=== PATIENT | female | born 1970 | race Caucasian/White ===

== ENCOUNTER 2025-01-06 15:16 | Observation (INO) ==
[2025-01-06] MEDS ORDERED: VANCOMYCIN IV *PREMIX 1 G/200 ML BAG 1 G/200 ML PIGGYBACK IV SCH (17:14)
[2025-01-06 17:37] LABS: BASOPHILS # (AUTO) 0.1 X10^3/uL (0.0-0.1); BASOPHILS % (AUTO) 0.9 % (0.2-1.0); EOSINOPHILS # (AUTO) 0.1 x10^3/uL (0.0-0.2); EOSINOPHILS % (AUTO) 1.3 % (0.9-2.9); HEMATOCRIT 36.6 % (36.0-47.0); HEMOGLOBIN 12.7 g/dL (12.0-16.0); LYMPHOCYTES # (AUTO) 2.7 X10^3/uL (1.3-2.9); LYMPHOCYTES % (AUTO) 29.4 % (21.0-51.0); MEAN CORPUSCULAR HEMOGLOBIN 31.9 pg (27.0-34.0); MEAN CORPUSCULAR HGB CONC 34.7 g/dL (33.0-35.0); MEAN CORPUSCULAR VOLUME 91.9 fL (80.0-100.0); MEAN PLATELET VOLUME 7.5 fL (7.4-11.0); MONOCYTES # (AUTO) 0.6 x10^3/uL (0.3-0.8); MONOCYTES % (AUTO) 6.4 % (0.0-13.0); NEUTROPHILS # (AUTO) 5.7 x10^3/uL (2.2-4.8); PLATELET COUNT 246 X10^3/uL (150.0-450.0); RED BLOOD COUNT 3.99 X10^6/uL (3.5-5.4); RED CELL DISTRIBUTION WIDTH 13.3 % (11.6-16.5); WHITE BLOOD COUNT 9.1 X10^3/uL (3.6-10.0)
[2025-01-06] MEDS: D5 1/2 NS 1,000 ML 1,000 ML IV SCH (17:40)
[2025-01-06 17:54] LABS: ALANINE AMINOTRANSFERASE 24 Units/L (12-78); ALKALINE PHOSPHATASE 103 Units/L (46-116); ASPARTATE AMINO TRANSFERASE 22 Units/L (15-37); BLOOD UREA NITROGEN 12 mg/dL (7-18); CALCIUM 8.5 mg/dL (8.5-10.1); CARBON DIOXIDE 31.7 mmol/L (21-32); CHLORIDE 103 mmol/L (98-107); COR CA(FOR HYPOALB) 9.3 mg/dL (8.5-10.1); COR NA(FOR HYPERGLY) 142 mmol/L (136-145); CREATININE 0.63 mg/dL (0.55-1.02); GLUCOSE 132 mg/dL (65-99); POTASSIUM 3.7 mmol/L (3.5-5.1); SODIUM 141 mmol/L (136-145); TOTAL PROTEIN 6.4 g/dL (6.4-8.2); eGFR NON BLACK RACES > 60 (>60)
[2025-01-06 18:21] VITALS: BMI 37.5
[2025-01-06] MEDS: BACTROBAN TOPICAL OINT TOP SCH (20:46)
[2025-01-06] MEDS: VANCOMYCIN IV *PREMIX 1.5 G/300 ML BAG 1.5 G/300 ML PIGGYBACK IV SCH (20:46)
[2025-01-06] MEDS: LOVENOX INJ 40 MG SYR SC SCH (20:47)
[2025-01-06] MEDS: NORCO 5/325 MG TAB PO PRN (21:59)
[2025-01-07 06:17] LABS: BASOPHILS % (AUTO) 0.5 % (0.2-1.0); EOSINOPHILS # (AUTO) 0.1 x10^3/uL (0.0-0.2); EOSINOPHILS % (AUTO) 1.7 % (0.9-2.9); HEMATOCRIT 37.3 % (36.0-47.0); HEMOGLOBIN 12.8 g/dL (12.0-16.0); LYMPHOCYTES # (AUTO) 2.7 X10^3/uL (1.3-2.9); LYMPHOCYTES % (AUTO) 32.4 % (21.0-51.0); MEAN CORPUSCULAR HEMOGLOBIN 31.8 pg (27.0-34.0); MEAN CORPUSCULAR HGB CONC 34.4 g/dL (33.0-35.0); MEAN CORPUSCULAR VOLUME 92.4 fL (80.0-100.0); MEAN PLATELET VOLUME 7.9 fL (7.4-11.0); MONOCYTES # (AUTO) 0.7 x10^3/uL (0.3-0.8); MONOCYTES % (AUTO) 8.2 % (0.0-13.0); NEUTROPHILS # (AUTO) 4.7 x10^3/uL (2.2-4.8); NEUTROPHILS % (AUTO) 57.2 % (42.0-75.0); PLATELET COUNT 241 X10^3/uL (150.0-450.0); RED BLOOD COUNT 4.04 X10^6/uL (3.5-5.4); RED CELL DISTRIBUTION WIDTH 13.4 % (11.6-16.5); WHITE BLOOD COUNT 8.2 X10^3/uL (3.6-10.0)
[2025-01-07 06:30] LABS: ALANINE AMINOTRANSFERASE 26 Units/L (12-78); ALKALINE PHOSPHATASE 105 Units/L (46-116); ASPARTATE AMINO TRANSFERASE 20 Units/L (15-37); BLOOD UREA NITROGEN 8 mg/dL (7-18); CALCIUM 8.5 mg/dL (8.5-10.1); CARBON DIOXIDE 28.5 mmol/L (21-32); CHLORIDE 104 mmol/L (98-107); COR CA(FOR HYPOALB) 9.3 mg/dL (8.5-10.1); COR NA(FOR HYPERGLY) 141 mmol/L (136-145); CREATININE 0.69 mg/dL (0.55-1.02); GLUCOSE 132 mg/dL (65-99); POTASSIUM 3.8 mmol/L (3.5-5.1); SODIUM 140 mmol/L (136-145); TOTAL PROTEIN 6.6 g/dL (6.4-8.2); eGFR NON BLACK RACES > 60 (>60)
[2025-01-07] MEDS ORDERED: CONSULT PHARMACY - POTASSIUM & MAGNESIUM XX SCH (07:00)
[2025-01-07 08:46] LABS: CREATININE 0.46 mg/dL (0.55-1.02); VANCOMYCIN,TROUGH 7.2 ug/mL (15-20)
[2025-01-07] MEDS: K-DUR TAB 20 MEQ PO SCH (08:55)
--- NOTE | 2025-01-07 11:28 | DR.PROGNOT ---
HOSPITAL PROGRESS NOTE Progress Note for Day of: Progress Note Date: 01/07/25 Chief Complaint Chief Complaint: Still complaining of pain around the wound with associated edema and erythema. Last culture is showing gram-positive cocci. CBC and chemistry are normal. Rest of her medical history is the same as before. Past Medical Family Social History Past Med/Fam/Surg Hx: No changes since H&P Allergies: Allergies Penicillins Allergy (Unknown, Verified 01/06/25 10:43) Reason: Drug allergy Vital Signs Vital Signs: Vital Signs Temperature 96.9 F Temperature 97.9 F Pulse Rate [Right Brachial] 72 Pulse Rate [Right Brachial] 72 Respiratory Rate 19 Respiratory Rate 16 Respiratory Rate 16 Respiratory Rate 16 Blood Pressure [Right Arm] 142/80 Blood Pressure [Right Arm] 126/76 O2 Sat by Pulse Oximetry 95 O2 Sat by Pulse Oximetry 92 Physical Exam Oriented: Normal Eyes: Normal Ear: Normal Nose: Normal Throat: Normal Respiratory: Normal GI:Auscultation: Normal GI:Palpation: Normal Skin: Other (4 x 3 cm open wound with associated cellulitis around the edges with tenderness) Speech Pattern: Clear and Appropriate Laboratory and Diagnostics 01/07/25 05:25 01/07/25 08:15 Labs: Laboratory WBC 8.2 X10^3/uL (3.6-10.0) 01/07/25 05:25 RBC 4.04 X10^6/uL (3.5-5.4) 01/07/25 05:25 Hgb 12.8 g/dL (12.0-16.0) 01/07/25 05:25 Hct 37.3 % (36.0-47.0) 01/07/25 05:25 MCV 92.4 fL (80.0-100.0) 01/07/25 05:25 MCH 31.8 pg (27.0-34.0) 01/07/25 05:25 MCHC 34.4 g/dL (33.0-35.0) 01/07/25 05:25 RDW 13.4 % (11.6-16.5) 01/07/25 05:25 Plt Count 241 X10^3/uL (150.0-450.0) 01/07/25 05:25 MPV 7.9 fL (7.4-11.0) 01/07/25 05:25 Neut % (Auto) 57.2 % (42.0-75.0) 01/07/25 05:25 Lymph % (Auto) 32.4 % (21.0-51.0) 01/07/25 05:25 [place] % (Auto) 8.2 % (0.0-13.0) 01/07/25 05:25 Eos % (Auto) 1.7 % (0.9-2.9) 01/07/25 05:25 Baso % (Auto) 0.5 % (0.2-1.0) 01/07/25 05:25 Neut # (Auto) 4.7 x10^3/uL (2.2-4.8) 01/07/25 05:25 Lymph # (Auto) 2.7 X10^3/uL (1.3-2.9) 01/07/25 05:25 [place] # (Auto) 0.7 x10^3/uL (0.3-0.8) 01/07/25 05:25 Eos # (Auto) 0.1 x10^3/uL (0.0-0.2) 01/07/25 05:25 Baso # (Auto) 0.0 X10^3/uL (0.0-0.1) 01/07/25 05:25 Absolute Nucleated RBC 0.1 /100WBC 01/07/25 05:25 Sodium 140 mmol/L (136-145) 01/07/25 05:25 Corrected Sodium 141 mmol/L (136-145) 01/07/25 05:25 Potassium 3.8 mmol/L (3.5-5.1) 01/07/25 05:25 Chloride 104 mmol/L (98-107) 01/07/25 05:25 Carbon Dioxide 28.5 mmol/L (21-32) 01/07/25 05:25 BUN 8 mg/dL (7-18) 01/07/25 05:25 Creatinine 0.46 mg/dL (0.55-1.02) L 01/07/25 08:15 Est GFR (MDRD) Af Amer > 60 (>60) 01/07/25 05:25 Est GFR (MDRD) Non-Af > 60 (>60) 01/07/25 05:25 Glucose 132 mg/dL (65-99) H 01/07/25 05:25 Calcium 8.5 mg/dL (8.5-10.1) 01/07/25 05:25 Corrected Calcium 9.3 mg/dL (8.5-10.1) 01/07/25 05:25 Magnesium 2.0 mg/dL (2.0-2.9) 01/07/25 05:25 Total Bilirubin 0.50 mg/dL (0.2-1.0) 01/07/25 05:25 AST 20 Units/L (15-37) 01/07/25 05:25 ALT 26 Units/L (12-78) 01/07/25 05:25 Alkaline Phosphatase 105 Units/L (46-116) 01/07/25 05:25 Total Protein 6.6 g/dL (6.4-8.2) 01/07/25 05:25 Albumin 3.0 g/dL (3.4-5.0) L 01/07/25 05:25 Globulin 3.6 g/dL (2.5-4.5) 01/07/25 05:25 Albumin/Globulin Ratio 0.8 Ratio (1.1-2.1) L 01/07/25 05:25 Vancomycin Trough 7.2 ug/mL (15-20) L 01/07/25 08:15 Assessment and Plan 1: Infected wound left lower extremity. On IV vancomycin and local care with debridement as needed then packing with iodoform packing.
[2025-01-08 08:54] LABS: BASOPHILS # (AUTO) 0.1 X10^3/uL (0.0-0.1); BASOPHILS % (AUTO) 1.1 % (0.2-1.0); EOSINOPHILS # (AUTO) 0.2 x10^3/uL (0.0-0.2); EOSINOPHILS % (AUTO) 2.1 % (0.9-2.9); HEMATOCRIT 38.2 % (36.0-47.0); HEMOGLOBIN 13.1 g/dL (12.0-16.0); LYMPHOCYTES # (AUTO) 2.2 X10^3/uL (1.3-2.9); LYMPHOCYTES % (AUTO) 30.4 % (21.0-51.0); MEAN CORPUSCULAR HEMOGLOBIN 31.8 pg (27.0-34.0); MEAN CORPUSCULAR HGB CONC 34.4 g/dL (33.0-35.0); MEAN CORPUSCULAR VOLUME 92.4 fL (80.0-100.0); MEAN PLATELET VOLUME 7.9 fL (7.4-11.0); MONOCYTES # (AUTO) 0.4 x10^3/uL (0.3-0.8); MONOCYTES % (AUTO) 5.6 % (0.0-13.0); NEUTROPHILS # (AUTO) 4.4 x10^3/uL (2.2-4.8); NEUTROPHILS % (AUTO) 60.8 % (42.0-75.0); PLATELET COUNT 234 X10^3/uL (150.0-450.0); RED BLOOD COUNT 4.13 X10^6/uL (3.5-5.4); RED CELL DISTRIBUTION WIDTH 13.5 % (11.6-16.5); WHITE BLOOD COUNT 7.2 X10^3/uL (3.6-10.0)
[2025-01-08 09:12] LABS: ALANINE AMINOTRANSFERASE 27 Units/L (12-78); ALKALINE PHOSPHATASE 99 Units/L (46-116); ASPARTATE AMINO TRANSFERASE 19 Units/L (15-37); BLOOD UREA NITROGEN 8 mg/dL (7-18); CALCIUM 8.8 mg/dL (8.5-10.1); CARBON DIOXIDE 28.6 mmol/L (21-32); CHLORIDE 105 mmol/L (98-107); COR CA(FOR HYPOALB) 9.6 mg/dL (8.5-10.1); COR NA(FOR HYPERGLY) 142 mmol/L (136-145); CREATININE 0.53 mg/dL (0.55-1.02); CREATININE 0.57 mg/dL (0.55-1.02); GLUCOSE 173 mg/dL (65-99); POTASSIUM 3.6 mmol/L (3.5-5.1); SODIUM 140 mmol/L (136-145); TOTAL PROTEIN 6.7 g/dL (6.4-8.2); VANCOMYCIN,TROUGH 12.8 ug/mL (15-20); eGFR NON BLACK RACES > 60 (>60)
[2025-01-08] MEDS: PHARMACY COMMENT IV SCH (09:28)
[2025-01-08] MEDS ORDERED: CONSULT PHARMACY - POTASSIUM & MAGNESIUM XX SCH (10:00)
[2025-01-08] MEDS: K-DUR TAB 20 MEQ PO SCH (10:10)
--- NOTE | 2025-01-08 11:45 | DR.CONSULT ---
CONSULT Consultation for Day of: Date: 01/08/25 Chief Complaint Chief Complaint: Left lower leg infected wound Allergies Allergies Allergy/AdvReac Type Severity Reaction Status Date / Time Penicillins Allergy Unknown Verified 01/06/25 10:43 History of Present Illness History of Present Illness: Patient is a 54-year-old female with admission for left lower leg infected wound/abscess with surrounding cellulitis. This morning she is resting comfortably in bed. No acute events overnight. She is currently receiving IV vancomycin. Labs/imaging: WBC 7.2, hemoglobin 13.1, platelets 234, sodium 140, potassium 3.6, creatinine 0.53, glucose 173. Wound culture positive for gram positive cocci. Medicine consulted for further monitoring. Wound is now packed with iodoform dressing. Will continue with IV antibiotics. Otherwise continue with current treatment plan. Continue closely monitor and follow-up labs/imaging. Past Medical History Past Medical History: Depression Past Surgical History Surgical History: , Cholecystectomy and Other Family History Family Medical History: Diabetes Mellitus, Cancer, [place], Coronary Artery Disease, Heart Failure and Hypertension Social History Does patient currently use any type of tobacco product: Yes Type of Tobacco Use: Cigarettes How many years tobacco product used: 20 Does any household member use tobacco: Yes Alcohol Use: None Drug Use: None Medications Home Medications: Penicillins Allergy (Unknown, Verified 01/06/25 10:43) CONTINUE taking the following medications hydrocodone 5 mg-acetaminophen 325 mg tablet 5 tab PO Q4H PRN Pain 01/06/25 [History] Review of Systems Constitutional: No Symptoms Reported Eyes: No Symptoms Reported ENT: No Symptoms Reported Respiratory: No Symptoms Reported Cardiovascular: No Symptoms Reported Gastrointestinal: No Symptoms Reported Genitourinary: No Symptoms Reported Musculoskeletal: No Symptoms Reported Skin: Wound (LLE) Neurological: No Symptoms Reported Physical Exam Vital Signs: Vital Signs Temperature 97.8 F Temperature 98.3 F Pulse Rate [Right Brachial] 89 Pulse Rate [Right Brachial] 70 Respiratory Rate 20 Respiratory Rate 20 Blood Pressure [Left Arm] 162/81 Blood Pressure [Left Arm] 135/74 O2 Sat by Pulse Oximetry 94 O2 Sat by Pulse Oximetry 95 Oriented: Normal Eyes: Normal Throat: Normal Respiratory: Clear Throughout Cardiovascular: Normal : Normal Auscultation: Bowel Sounds: Normal Palpation: Normal Tenderness: Normal Skin: Wound (LLE) Musculoskeletal: Normal Psychiatric: Normal Mood Description: Calm Speech Pattern: Clear Plan (1) Infected traumatic leg ulcer: Status: Acute Qualifiers: Laterality: left Non-pressure ulcer stage: unspecified non-pressure ulcer stage Qualified Code(s): L97.929 - Non-pressure chronic ulcer of unspecified part of left lower leg with unspecified severity; L08.9 - Local infection of the skin and subcutaneous tissue, unspecified (2) Cellulitis of leg without foot, left: Status: Acute (3) Non-healing wound of left lower extremity: Status: Acute
[2025-01-09 06:43] LABS: BASOPHILS # (AUTO) 0.1 X10^3/uL (0.0-0.1); BASOPHILS % (AUTO) 0.9 % (0.2-1.0); EOSINOPHILS # (AUTO) 0.2 x10^3/uL (0.0-0.2); EOSINOPHILS % (AUTO) 2.5 % (0.9-2.9); HEMATOCRIT 38.2 % (36.0-47.0); HEMOGLOBIN 13.1 g/dL (12.0-16.0); LYMPHOCYTES # (AUTO) 2.5 X10^3/uL (1.3-2.9); LYMPHOCYTES % (AUTO) 31.6 % (21.0-51.0); MEAN CORPUSCULAR HEMOGLOBIN 31.6 pg (27.0-34.0); MEAN CORPUSCULAR HGB CONC 34.4 g/dL (33.0-35.0); MEAN CORPUSCULAR VOLUME 91.9 fL (80.0-100.0); MEAN PLATELET VOLUME 7.9 fL (7.4-11.0); MONOCYTES # (AUTO) 0.5 x10^3/uL (0.3-0.8); NEUTROPHILS # (AUTO) 4.5 x10^3/uL (2.2-4.8); PLATELET COUNT 238 X10^3/uL (150.0-450.0); RED BLOOD COUNT 4.15 X10^6/uL (3.5-5.4); WHITE BLOOD COUNT 7.8 X10^3/uL (3.6-10.0)
[2025-01-09 07:00] LABS: ALANINE AMINOTRANSFERASE 28 Units/L (12-78); ALKALINE PHOSPHATASE 101 Units/L (46-116); ASPARTATE AMINO TRANSFERASE 19 Units/L (15-37); BLOOD UREA NITROGEN 9 mg/dL (7-18); CALCIUM 8.7 mg/dL (8.5-10.1); CARBON DIOXIDE 27.8 mmol/L (21-32); CHLORIDE 106 mmol/L (98-107); COR CA(FOR HYPOALB) 9.5 mg/dL (8.5-10.1); COR NA(FOR HYPERGLY) 139 mmol/L (136-145); CREATININE 0.56 mg/dL (0.55-1.02); GLUCOSE 113 mg/dL (65-99); MAGNESIUM 2.1 mg/dL (2.0-2.9); POTASSIUM 3.9 mmol/L (3.5-5.1); SODIUM 139 mmol/L (136-145); TOTAL PROTEIN 6.7 g/dL (6.4-8.2); eGFR NON BLACK RACES > 60 (>60)
--- NOTE | 2025-01-09 11:16 | PCM.PROG ---
Progress Note Progress Note for Day of Date of Exam: 01/09/25 Subjective Subjective: Patient is a 54-year-old female with admission for left lower leg infected wound/abscess with surrounding cellulitis. She is sitting up in bed this morning. No acute events overnight. She is currently receiving IV vancomycin. Labs/imaging: WBC 7.8, hemoglobin 13.1, platelets 238, sodium 139, potassium 3.9, creatinine 0.56, glucose 113. Wound culture positive for gram positive cocci. Medicine consulted for further monitoring. Wound is now packed with iodoform dressing. Will continue with IV antibiotics. Otherwise continue with current treatment plan. Continue closely monitor and follow-up labs/imaging. Past Medical Family Social History Past Med/Fam/Surg Hx: No changes since H&P Allergies: Allergies Penicillins Allergy (Unknown, Verified 01/06/25 10:43) Reason: Drug allergy Review of Systems ROS changes noted: see HPI Vital Signs and I&O's Vital Signs: Vital Signs Temperature 97.6 F Temperature 98.0 F Pulse Rate [Right Brachial] 74 Pulse Rate [Right Brachial] 70 Respiratory Rate 18 Respiratory Rate 20 Blood Pressure [Left Arm] 177/80 Blood Pressure [Left Arm] 151/79 O2 Sat by Pulse Oximetry 94 O2 Sat by Pulse Oximetry 96 Intake and Output: Intake & Output 01/06/25 01/07/25 01/08/25 01/09/25 23:59 23:59 23:59 23:59 Intake Total 582 / 582 2586 / 3036 2496 / 2496 700 / 700 Balance 582 / 582 2586 / 3036 2496 / 2496 700 / 700 Physical Exam Oriented: Normal Eyes: Normal Ear: Normal Nose: Normal Throat: Normal Respiratory: Normal Cardiovascular: Normal : Normal Auscultation: Bowel Sounds: Normal Tenderness: Normal Skin: Wound (LLE) Musculoskeletal: Normal Psychiatric: Normal Mood Description: Calm Speech Pattern: Clear and Appropriate Laboratory and Diagnostics 01/09/25 06:00 01/09/25 06:00 Labs: Laboratory WBC 7.8 X10^3/uL (3.6-10.0) 01/09/25 06:00 RBC 4.15 X10^6/uL (3.5-5.4) 01/09/25 06:00 Hgb 13.1 g/dL (12.0-16.0) 01/09/25 06:00 Hct 38.2 % (36.0-47.0) 01/09/25 06:00 MCV 91.9 fL (80.0-100.0) 01/09/25 06:00 MCH 31.6 pg (27.0-34.0) 01/09/25 06:00 MCHC 34.4 g/dL (33.0-35.0) 01/09/25 06:00 RDW 13.0 % (11.6-16.5) 01/09/25 06:00 Plt Count 238 X10^3/uL (150.0-450.0) 01/09/25 06:00 MPV 7.9 fL (7.4-11.0) 01/09/25 06:00 Neut % (Auto) 58.0 % (42.0-75.0) 01/09/25 06:00 Lymph % (Auto) 31.6 % (21.0-51.0) 01/09/25 06:00 [place] % (Auto) 7.0 % (0.0-13.0) 01/09/25 06:00 Eos % (Auto) 2.5 % (0.9-2.9) 01/09/25 06:00 Baso % (Auto) 0.9 % (0.2-1.0) 01/09/25 06:00 Neut # (Auto) 4.5 x10^3/uL (2.2-4.8) 01/09/25 06:00 Lymph # (Auto) 2.5 X10^3/uL (1.3-2.9) 01/09/25 06:00 [place] # (Auto) 0.5 x10^3/uL (0.3-0.8) 01/09/25 06:00 Eos # (Auto) 0.2 x10^3/uL (0.0-0.2) 01/09/25 06:00 Baso # (Auto) 0.1 X10^3/uL (0.0-0.1) 01/09/25 06:00 Absolute Nucleated RBC 0.2 /100WBC 01/09/25 06:00 Sodium 139 mmol/L (136-145) 01/09/25 06:00 Corrected Sodium 139 mmol/L (136-145) 01/09/25 06:00 Potassium 3.9 mmol/L (3.5-5.1) 01/09/25 06:00 Chloride 106 mmol/L (98-107) 01/09/25 06:00 Carbon Dioxide 27.8 mmol/L (21-32) 01/09/25 06:00 BUN 9 mg/dL (7-18) 01/09/25 06:00 Creatinine 0.56 mg/dL (0.55-1.02) 01/09/25 06:00 Est GFR (MDRD) Af Amer > 60 (>60) 01/09/25 06:00 Est GFR (MDRD) Non-Af > 60 (>60) 01/09/25 06:00 Glucose 113 mg/dL (65-99) H 01/09/25 06:00 Calcium 8.7 mg/dL (8.5-10.1) 01/09/25 06:00 Corrected Calcium 9.5 mg/dL (8.5-10.1) 01/09/25 06:00 Magnesium 2.1 mg/dL (2.0-2.9) 01/09/25 06:00 Total Bilirubin 0.50 mg/dL (0.2-1.0) 01/09/25 06:00 AST 19 Units/L (15-37) 01/09/25 06:00 ALT 28 Units/L (12-78) 01/09/25 06:00 Alkaline Phosphatase 101 Units/L (46-116) 01/09/25 06:00 Total Protein 6.7 g/dL (6.4-8.2) 01/09/25 06:00 Albumin 3.0 g/dL (3.4-5.0) L 01/09/25 06:00 Globulin 3.7 g/dL (2.5-4.5) 01/09/25 06:00 Albumin/Globulin Ratio 0.8 Ratio (1.1-2.1) L 01/09/25 06:00 Vancomycin Trough 12.8 ug/mL (15-20) L 01/08/25 08:25 Plan (1) Infected traumatic leg ulcer: Status: Acute Qualifiers: Laterality: left Non-pressure ulcer stage: unspecified non-pressure ulcer stage Qualified Code(s): L97.929 - Non-pressure chronic ulcer of unspecified part of left lower leg with unspecified severity; L08.9 - Local infection of the skin and subcutaneous tissue, unspecified (2) Cellulitis of leg without foot, left: Status: Acute (3) Non-healing wound of left lower extremity: Status: Acute
[2025-01-09 21:23] LABS: CREATININE 0.64 mg/dL (0.55-1.02)
--- NOTE | 2025-01-10 10:48 | DR.PROGNOT ---
HOSPITAL PROGRESS NOTE Progress Note for Day of: Progress Note Date: 01/10/25 Chief Complaint Chief Complaint: Much less pain around the wound with less associated edema and erythema. Last culture is showing gram-positive cocci. CBC and chemistry are normal. Rest of her medical history is the same as before., Vancomycin level is 13 .. Past Medical Family Social History Past Med/Fam/Surg Hx: No changes since H&P Allergies: Allergies Penicillins Allergy (Unknown, Verified 01/06/25 10:43) Reason: Drug allergy Review Of Systems Changes in ROS: see HPI Vital Signs Vital Signs: Vital Signs Temperature 97.6 F Temperature 98 F Pulse Rate [Right Brachial] 70 Pulse Rate [Right Brachial] 68 Respiratory Rate 18 Respiratory Rate 15 Blood Pressure [Left Arm] 141/75 Blood Pressure [Left Arm] 151/71 O2 Sat by Pulse Oximetry 95 O2 Sat by Pulse Oximetry 96 Physical Exam Oriented: Normal Eyes: Normal Ear: Normal Nose: Normal Throat: Normal Respiratory: Normal Cardiovascular: Normal : Normal GI:Auscultation: Normal GI:Palpation: Normal GI: Tenderness: Normal Skin: Wound (4 x 2 cm open wound left lower extremity with mild drainage, no evidence of necrosis or abscess formation.) Musculoskeletal: Normal Psychiatric: Normal Mood Description: Calm Speech Pattern: Clear and Appropriate Laboratory and Diagnostics 01/09/25 06:00 01/09/25 20:35 Labs: Laboratory WBC 7.8 X10^3/uL (3.6-10.0) 01/09/25 06:00 RBC 4.15 X10^6/uL (3.5-5.4) 01/09/25 06:00 Hgb 13.1 g/dL (12.0-16.0) 01/09/25 06:00 Hct 38.2 % (36.0-47.0) 01/09/25 06:00 MCV 91.9 fL (80.0-100.0) 01/09/25 06:00 MCH 31.6 pg (27.0-34.0) 01/09/25 06:00 MCHC 34.4 g/dL (33.0-35.0) 01/09/25 06:00 RDW 13.0 % (11.6-16.5) 01/09/25 06:00 Plt Count 238 X10^3/uL (150.0-450.0) 01/09/25 06:00 MPV 7.9 fL (7.4-11.0) 01/09/25 06:00 Neut % (Auto) 58.0 % (42.0-75.0) 01/09/25 06:00 Lymph % (Auto) 31.6 % (21.0-51.0) 01/09/25 06:00 [place] % (Auto) 7.0 % (0.0-13.0) 01/09/25 06:00 Eos % (Auto) 2.5 % (0.9-2.9) 01/09/25 06:00 Baso % (Auto) 0.9 % (0.2-1.0) 01/09/25 06:00 Neut # (Auto) 4.5 x10^3/uL (2.2-4.8) 01/09/25 06:00 Lymph # (Auto) 2.5 X10^3/uL (1.3-2.9) 01/09/25 06:00 [place] # (Auto) 0.5 x10^3/uL (0.3-0.8) 01/09/25 06:00 Eos # (Auto) 0.2 x10^3/uL (0.0-0.2) 01/09/25 06:00 Baso # (Auto) 0.1 X10^3/uL (0.0-0.1) 01/09/25 06:00 Absolute Nucleated RBC 0.2 /100WBC 01/09/25 06:00 Sodium 139 mmol/L (136-145) 01/09/25 06:00 Corrected Sodium 139 mmol/L (136-145) 01/09/25 06:00 Potassium 3.9 mmol/L (3.5-5.1) 01/09/25 06:00 Chloride 106 mmol/L (98-107) 01/09/25 06:00 Carbon Dioxide 27.8 mmol/L (21-32) 01/09/25 06:00 BUN 9 mg/dL (7-18) 01/09/25 06:00 Creatinine 0.64 mg/dL (0.55-1.02) 01/09/25 20:35 Est GFR (MDRD) Af Amer > 60 (>60) 01/09/25 06:00 Est GFR (MDRD) Non-Af > 60 (>60) 01/09/25 06:00 Glucose 113 mg/dL (65-99) H 01/09/25 06:00 Calcium 8.7 mg/dL (8.5-10.1) 01/09/25 06:00 Corrected Calcium 9.5 mg/dL (8.5-10.1) 01/09/25 06:00 Magnesium 2.1 mg/dL (2.0-2.9) 01/09/25 06:00 Total Bilirubin 0.50 mg/dL (0.2-1.0) 01/09/25 06:00 AST 19 Units/L (15-37) 01/09/25 06:00 ALT 28 Units/L (12-78) 01/09/25 06:00 Alkaline Phosphatase 101 Units/L (46-116) 01/09/25 06:00 Total Protein 6.7 g/dL (6.4-8.2) 01/09/25 06:00 Albumin 3.0 g/dL (3.4-5.0) L 01/09/25 06:00 Globulin 3.7 g/dL (2.5-4.5) 01/09/25 06:00 Albumin/Globulin Ratio 0.8 Ratio (1.1-2.1) L 01/09/25 06:00 Vancomycin Trough 13.0 ug/mL (15-20) L 01/09/25 20:35 Assessment and Plan 1: Infected wound left lower extremity. On IV vancomycin and local care. No need for debridement now, will continue IV antibiotics for 24 hours possible discharge in a.m.
[2025-01-11 06:20] LABS: BASOPHILS # (AUTO) 0.1 X10^3/uL (0.0-0.1); BASOPHILS % (AUTO) 0.9 % (0.2-1.0); EOSINOPHILS # (AUTO) 0.3 x10^3/uL (0.0-0.2); EOSINOPHILS % (AUTO) 3.4 % (0.9-2.9); HEMATOCRIT 37.6 % (36.0-47.0); HEMOGLOBIN 12.9 g/dL (12.0-16.0); LYMPHOCYTES % (AUTO) 26.9 % (21.0-51.0); MEAN CORPUSCULAR HEMOGLOBIN 31.6 pg (27.0-34.0); MEAN CORPUSCULAR HGB CONC 34.3 g/dL (33.0-35.0); MEAN CORPUSCULAR VOLUME 91.9 fL (80.0-100.0); MEAN PLATELET VOLUME 7.8 fL (7.4-11.0); MONOCYTES # (AUTO) 0.6 x10^3/uL (0.3-0.8); MONOCYTES % (AUTO) 8.2 % (0.0-13.0); NEUTROPHILS # (AUTO) 4.6 x10^3/uL (2.2-4.8); NEUTROPHILS % (AUTO) 60.6 % (42.0-75.0); PLATELET COUNT 239 X10^3/uL (150.0-450.0); RED BLOOD COUNT 4.09 X10^6/uL (3.5-5.4); RED CELL DISTRIBUTION WIDTH 13.5 % (11.6-16.5); WHITE BLOOD COUNT 7.6 X10^3/uL (3.6-10.0)
[2025-01-11 06:27] LABS: ALANINE AMINOTRANSFERASE 34 Units/L (12-78); ALKALINE PHOSPHATASE 101 Units/L (46-116); ASPARTATE AMINO TRANSFERASE 20 Units/L (15-37); BLOOD UREA NITROGEN 9 mg/dL (7-18); CALCIUM 8.7 mg/dL (8.5-10.1); CARBON DIOXIDE 26.6 mmol/L (21-32); CHLORIDE 106 mmol/L (98-107); COR CA(FOR HYPOALB) 9.5 mg/dL (8.5-10.1); COR NA(FOR HYPERGLY) 142 mmol/L (136-145); CREATININE 0.54 mg/dL (0.55-1.02); GLUCOSE 113 mg/dL (65-99); POTASSIUM 3.8 mmol/L (3.5-5.1); SODIUM 142 mmol/L (136-145); TOTAL PROTEIN 6.5 g/dL (6.4-8.2); eGFR NON BLACK RACES > 60 (>60)
[2025-01-11 11:57] VITALS: BP 164/85; PULSE 78; RESP 21; TEMP 98.2; O2SAT 95
[2025-01-11] MEDS ORDERED: VANCOMYCIN HCL IV SCH (21:00)
[2025-01-11] MEDS ORDERED: D5W IV SCH (21:00)
== END 2025-01-11 13:15 | disposition home or self-care (01) ==
LOC: MED/SURG
PROVIDERS: ADMIT Surgery; ATTEND Surgery
DX: Z16.12 Extended spectrum beta lactamase (ESBL) resistance; Z16.19 Resistance to other specified beta lactam antibiotics; B95.7 Other staphylococcus as the cause of diseases classified elsewhere; Z16.29 Resistance to other single specified antibiotic; S81.802D Unspecified open wound, left lower leg, subsequent encounter; M79.662 Pain in left lower leg; Z16.23 Resistance to quinolones and fluoroquinolones; W22.8XXD Striking against or struck by other objects, subsequent encounter; L03.116 Cellulitis of left lower limb; L97.929 Non-pressure chronic ulcer of unspecified part of left lower leg with unspecified severity; Z16.11 Resistance to penicillins